=== PATIENT | male | born 1950 | race Caucasian/White ===

== ENCOUNTER → 2017-10-09 | Outpatient (CLI) | payer MEDICARE, BC, OTHER | LOC: M WUC 08:58 | DX: S16.1XXA Strain of muscle, fascia and tendon at neck level, initial encounter (principal); X58.XXXA Exposure to other specified factors, initial encounter; Y92.89 Other specified places as the place of occurrence of the external cause | CPT/HCPCS: 72052 ==

== ENCOUNTER → 2017-12-04 | Outpatient (CLI) | payer MEDICARE, BC, OTHER ==
[2017-12-04 11:53] LABS: ALBUMIN 4.2 GM/DL (3.2-5.2); ALKALINE PHOSPHATASE 71 U/L (45-117); ALT/SGPT 23 U/L (12-78); ANION GAP 7 MEQ/L (8-16); AST/SGOT 14 U/L (7-37); BILIRUBIN,TOTAL 0.5 MG/DL (0.2-1.0); BLOOD UREA NITROGEN 24 MG/DL (7-18); CALCIUM LEVEL 8.9 MG/DL (8.8-10.2); CARBON DIOXIDE LEVEL 27 MEQ/L (21-32); CHLORIDE LEVEL 110 MEQ/L (98-107); CHOLESTEROL LEVEL 172 MG/DL (<200); CHOLESTEROL RISK RATIO 2.866 (<5); GLOMERULAR FILTRATION RATE > 60.0 (>49); GLUCOSE, FASTING 91 MG/DL (70-100); HDL CHOLESTEROL 60 MG/DL (>40); LDL CHOLESTEROL 95 MG/DL (<100); NON-HDL-C 112 MG/DL; POTASSIUM SERUM 4.8 MEQ/L (3.5-5.1); PROSTATIC SPECIFIC AG MONITOR < 0.01 NG/ML (< 4.0); SODIUM LEVEL 144 MEQ/L (136-145); TOTAL 25(OH) VITAMIN D 25.3 NG/ML (30.0-100.0); TRIGLYCERIDES LEVEL 87 MG/DL (<150)
[2017-12-04 12:50] LABS: ALBUMIN/GLOBULIN RATIO 0.67 (1.00-1.93)
[2017-12-07 00:06] LABS: Lyme Disease IgG/IgM Antibodie <0.91 ISR (0.00-0.90); Lyme Disease IgM Ab Quantitati <0.80 index (0.00-0.79)
== END ==
LOC: M WUC 08:29
DX: E56.9 Vitamin deficiency, unspecified (principal); M25.562 Pain in left knee
CPT/HCPCS: 84443

== ENCOUNTER 2018-07-25 12:12 | Day surgery (SDC) | payer MEDICARE, BC, OTHER ==
[~2018-07-25] VITALS: Ht 172.7 cm; Wt 85.7 kg
[~2018-07-25 12:12] MED LIST: NS 1,000 ML IV ONE; ZYRTTAB8 PO
[2018-07-25] MEDS ORDERED: LIDOCAINE 2% INJ 100 MG/5 ML SDV (FOR ANES.) As Ordered ONE (13:59)
[2018-07-25] MEDS ORDERED: PROPOFOL 200 MG/20 ML VIAL As Ordered ONE (13:59)
--- NOTE | 2018-07-25 14:34 | ROOR ---
Patient Name: Ranjeet Poole Procedure Date: 07/25/2018 2:13 PM Date of : 1950 Age: 67 Room: [facility] Gender: Male Note Status: Finalized Procedure: Colonoscopy Indications: High risk colon cancer surveillance: Personal history of colonic polyps Providers: Luca Garcia Jr, MD Referring MD: Alpesh Pineda MD Requesting Provider: Medicines: Propofol per Anesthesia Complications: No immediate complications. Procedure: Pre-Anesthesia Assessment: - Prior to the procedure, a History and Physical was performed, and patient medications and allergies were reviewed. The patient is competent. The risks and benefits of the procedure and the sedation options and risks were discussed with the patient. All questions were answered and informed consent was obtained. Patient identification and proposed procedure were verified by the physician and the nurse in the pre-procedure area and in the procedure room. Mental Status Examination: alert and oriented. Airway Examination: normal oropharyngeal airway and neck mobility. Respiratory Examination: clear to auscultation. CV Examination: normal. ASA Grade Assessment: II - A patient with mild systemic disease. After reviewing the risks and benefits, the patient was deemed in satisfactory condition to undergo the procedure. The anesthesia plan was to use moderate sedation / analgesia (conscious sedation). Immediately prior to administration of medications, the patient was re-assessed for adequacy to receive sedatives. The heart rate, respiratory rate, oxygen saturations, blood pressure, adequacy of pulmonary ventilation, and response to care were monitored throughout the procedure. The physical status of the patient was re-assessed after the procedure. The Colonoscope was introduced through the anus and advanced to the cecum, identified by appendiceal orifice and ileocecal valve. The colonoscopy was performed without difficulty. The patient tolerated the procedure well. The quality of the bowel preparation was good. Findings: The rectum, recto-sigmoid colon, sigmoid colon, descending colon, transverse colon, ascending colon, cecum and appendiceal orifice appeared normal. Impression: - The rectum, recto-sigmoid colon, sigmoid colon, descending colon, transverse colon, ascending colon, cecum and appendiceal orifice are normal. - No specimens collected. Recommendation: - Discharge patient to home (ambulatory). - Repeat colonoscopy in 5-10 years for screening purposes. Luca Garcia MD Luca Garcia Jr, MD 07/25/2018 2:34:13 PM Electronically signed by Luca Garcia Jr, MD Number of Addenda: 0 Note Initiated On: 07/25/2018 2:13 PM Estimated Blood Loss: Estimated blood loss: none.
[2018-07-25 15:29] VITALS: BP 174/88
== END 2018-07-25 15:29 | disposition home or self-care (01) ==
LOC: M OPP 12:12
PROVIDERS: ATTEND Surgery
DX: Z86.010 Personal history of colon polyps (principal)

== ENCOUNTER → 2019-04-09 | Outpatient (CLI) | payer MEDICARE, BC, OTHER ==
[~2019-04-09] MED LIST changes: -NS 1,000 ML IV ONE
== END ==
LOC: M WUC 10:51
DX: C61 Malignant neoplasm of prostate (principal)

== ENCOUNTER → 2019-11-24 | Outpatient (RCR) | payer MEDICARE, BC, OTHER | END | disposition home or self-care (01) | LOC: M PT 11-05 09:15 | PROVIDERS: ATTEND Nurse Practitioner | DX: I89.0 Lymphedema, not elsewhere classified (principal) ==

== ENCOUNTER 2019-12-11 10:45 | Outpatient (RCR) | payer MEDICARE, BC, OTHER | END 2019-12-24 | LOC: M PT 10:45 | PROVIDERS: ATTEND Nurse Practitioner | DX: I89.0 Lymphedema, not elsewhere classified (principal); I87.2 Venous insufficiency (chronic) (peripheral) ==

== ENCOUNTER 2020-06-09 09:13 | Outpatient (RCR) | payer MEDICARE, BC, OTHER | END 2020-06-23 | LOC: M PT 09:13 | PROVIDERS: ATTEND Nurse Practitioner | DX: R60.0 Localized edema (principal) ==

== ENCOUNTER → 2020-10-14 | Outpatient (CLI) | payer MEDICARE, BC, OTHER ==
--- NOTE | 2020-10-14 10:18 | REP ---
INDICATION: SOB. COMPARISON: Comparison study January 19, 2009. TECHNIQUE: Two views.. FINDINGS: Ventral discectomy and fusion plate is visible in the cervical spine at the top of the field of view. There are mild degenerative changes in the thoracic spine and there are orthopedic anchors in the right humeral head. No acute bony abnormality is seen. The patient is also noted to be status post lumbar spine fusion. The lungs are well inflated and clear. Pleural angles are sharp. Heart is not enlarged. Pulmonary vasculature is not increased. IMPRESSION: No active cardiopulmonary disease.. <Electronically signed by Randal Horta > 10/14/20 [id number]
== END ==
LOC: M WUC 09:40
PROVIDERS: ATTEND Internal Medicine
DX: R06.02 Shortness of breath (principal); Z98.1 Arthrodesis status

== ENCOUNTER 2020-11-30 09:11 | Outpatient (RCR) | payer MEDICARE, BC, OTHER | END 2020-12-23 | LOC: M PT 09:11 | PROVIDERS: ATTEND Nurse Practitioner | DX: R60.0 Localized edema (principal) ==

== ENCOUNTER → 2021-02-03 | Outpatient (CLI) | payer MEDICARE, BC, OTHER ==
--- NOTE | 2021-02-03 11:19 | REP ---
INDICATION: POSSIBLE RENAL CYST. COMPARISON: 05/20/2012 TECHNIQUE: Real-time sonographic evaluation of the kidneys with Doppler FINDINGS: Multiple ultrasonographic images of the right kidney show the right kidney to measure 12.9 x 5.9 x 5.8 cm. The renal cortical echotexture is unremarkable. There are no masses. There is good corticomedullary differentiation. There is no hydronephrosis. There are no perinephric fluid collections. There is a 2.8 cm sized renal cyst. This is essentially unchanged from the prior exam. Multiple ultrasonographic images of the left kidney show the left kidney to measure 12 x 5.4 x 6.1 cm.. The renal cortical echotexture is unremarkable. There are no masses. There is good corticomedullary differentiation. There is no hydronephrosis. There are no perinephric fluid collections. IMPRESSION: Stable right renal cyst. <Electronically signed by Anish Sandoval > 02/03/21 [id number]
== END ==
LOC: M RAD 10:36
PROVIDERS: ATTEND Internal Medicine
DX: M79.661 Pain in right lower leg (principal); M54.50 Low back pain, unspecified; N28.1 Cyst of kidney, acquired

== ENCOUNTER 2021-11-30 08:29 | Outpatient (RCR) | payer MEDICARE, BC, OTHER | END 2021-12-23 | LOC: M PT 08:29 | PROVIDERS: ATTEND Nurse Practitioner | DX: I89.0 Lymphedema, not elsewhere classified (principal) ==

== ENCOUNTER → 2024-01-04 | Outpatient (CLI) | payer MEDICARE, BC, OTHER | LOC: M SOG 07:50 | PROVIDERS: ATTEND Orthopaedic Surgery | DX: M79.644 Pain in right finger(s) (principal); M79.641 Pain in right hand; M19.041 Primary osteoarthritis, right hand ==